=== PATIENT | male | born 1965 | race Caucasian/White ===

== ENCOUNTER 2023-09-04 00:53 | Emergency (ER) | payer MEDICAID ==
[~2023-09-04] VITALS: Ht 152.4 cm; Wt 62.6 kg
[2023-09-04 01:15] VITALS: BP_SYST 140; PULSE 63; RESP 20; TEMP 98.6; O2SAT 99
[2023-09-04] MEDS ORDERED: NAPR-690 PO (03:57)
[2023-09-04 04:00] VITALS: BP_SYST 140; PULSE 63; RESP 20; TEMP 98.6; O2SAT 99
== END 2023-09-04 04:03 | disposition home or self-care (01) ==
LOC: SED 00:53
DX: S92.535A Nondisplaced fracture of distal phalanx of left lesser toe(s), initial encounter for closed fracture (principal); W22.8XXA Striking against or struck by other objects, initial encounter; Y93.89 Activity, other specified; Y92.89 Other specified places as the place of occurrence of the external cause; Y99.8 Other external cause status
CPT/HCPCS: 99283